=== PATIENT | male | born 1985 | race Caucasian/White ===

== ENCOUNTER → 2021-09-23 01:32 | Outpatient (CLI) | payer OTHER, SELFPAY ==
[2021-09-23 13:54] LABS: Influenza A QL RT-PCR Negative (Negative); Influenza B QL RT-PCR Negative (Negative); SARS-CoV-2 RNA PCR Negative
== END ==
PROVIDERS: PCP Family Medicine; Visit Provider Physician Assistant
DX: R50.9 Fever, unspecified (principal); Z20.822 Contact with and (suspected) exposure to COVID-19
CPT/HCPCS: 87502; C9803; U0003; U0005